=== PATIENT | male | born 1990 | race Caucasian/White ===

== ENCOUNTER 2021-12-01 08:51 | Emergency (ER) | payer BC, SELFPAY ==
[2021-12-01 09:03] VITALS: BP 138/84; PULSE 96; RESP 16; TEMP 36.4; O2SAT 99
--- NOTE | 2021-12-01 09:09 | ED.URI ---
HPI - URI/Sore Throat General Chief Complaint: Upper Respiratory Infection Stated Complaint: Sinus Pain/Sore Throat Time Seen by Provider: 12/01/21 09:09 Source: patient and RN notes reviewed Mode of arrival: ambulatory Limitations: no limitations History of Present Illness HPI Narrative: 31-year-old male presented for complaint of cough, nasal congestion and swollen throat for about 3 days. He states cough is productive of white sputum. Endorses hoarse voice. was sick last week. Denies nausea, vomiting, diarrhea, fever or chills. He is not taking anything for symptoms. He is not vaccinated for COVID or flu. MD elicited complaint: cough and sore throat Related Data Allergies Allergy/AdvReac Type Severity Reaction Status Date / Time No Known Allergies Allergy Verified 12/01/21 08:52 Review of Systems Review of Systems: CONSTITUTIONAL:denies malaise, chills, sweats, fever EYES: Denies visual changes, redness, or discharge ENT: Reports rhinorrhea, congestion, sinus pain, otalgia, sore throat CARDIOVASCULAR: Denies chest pain, palpitations, edema RESPIRATORY: Reports cough, post nasal drainage. Denies dyspnea GASTROINTESTINAL: Denies abdominal pain, nausea, vomiting, diarrhea SKIN: Denies rash or itching MUSCULOSKELETAL: denies myalgia NEUROLOGIC: Denies headache Exam Narrative: GENERAL: Ill-appearing, nontoxic HEAD: Normocephalic EYES: conjunctivae clear ENT: Mucous membranes moist. TM pearly liu with dull light reflex bilaterally; no tragal tenderness. Hoarse voice Oropharynx erythematous with tonsils 2+, without lesions or exudate, no drooling, no hoarseness, no trismus, uvula midline. No tripod positioning, muffled voice, soft palate or pharyngeal wall bulging NECK: Supple. No lymphadenopathy CHEST: Clear to auscultation, breath sounds equal. No wheezing, rhonchi, rales, or stridor. . HEART: Regular rate and rhythm. No murmur heard. SKIN: Warm, dry, no rash. NEURO: Alert and oriented x3. PSYCH: Normal mood and affect Course Course Emergency Course: Patient is aware of diagnosis, understands and agrees to treatment plan. Anticipatory guidance given. Patient agrees to follow-up as directed and is aware of reasons to seek care at the emergency department. Portions of this record may have been created with voice recognition software Level of Care: Express Care Visit Vital Signs Vital signs: Vital Signs Temperature 97.6 F 12/01/21 09:03 Pulse Rate 96 12/01/21 09:03 Respiratory Rate 16 12/01/21 09:03 Blood Pressure 138/84 12/01/21 09:03 Pulse Oximetry 99 12/01/21 09:03 Temperature 97.6 F 12/01/21 09:03 Pulse Rate 96 12/01/21 09:03 Respiratory Rate 16 12/01/21 09:03 Blood Pressure 138/84 12/01/21 09:03 Pulse Oximetry 99 12/01/21 09:03 reviewed MDM - URI/Sore Throat MDM Narrative Medical decision making narrative: strep neg Differential Diagnosis Differential diagnosis: Likely upper respiratory infection, sinusitis, viral infection and pharyngitis Discharge Plan Discharge Clinical Impression: Upper respiratory infection Qualifiers: URI type: unspecified URI Qualified Code(s): J06.9 - Acute upper respiratory infection, unspecified Acute tonsillitis Qualifiers: Pharyngitis/tonsillitis etiology: unspecified etiology Qualified Code(s): J03.90 - Acute tonsillitis, unspecified Patient Disposition: Home, Self-Care Condition: Stable Instructions: Antibiotic Form, Upper Respiratory Infection (ED), Tonsillitis (ED) Additional Instructions: Rapid strep swab was negative today You will be notified in a few days if the culture comes back positive for strep, and appropriate antibiotics will be called in at that time. if symptoms are due to a viral illness, it is not treated with antibiotics. Viral symptoms can be present for up to 10-14 days. Recommend Flonase spray and Zyrtec Cough syrup may cause drowsiness; avoid driving or take it at night time. Robin
== END 2021-12-01 09:46 | disposition home or self-care (01) ==
PROVIDERS: Emergency Provider Nurse Practitioner Family
DX: J06.9 Acute upper respiratory infection, unspecified (principal); J03.90 Acute tonsillitis, unspecified; Z28.310 Unvaccinated for COVID-19
CPT/HCPCS: 87081; 87880; 99213; G0463

== ENCOUNTER 2022-07-05 15:49 | Emergency (ER) | payer BC, SELFPAY ==
--- NOTE | 2022-07-05 15:56 | ED.URI ---
HPI - URI/Sore Throat General Chief Complaint: Unspecified Stated Complaint: COVID + Time Seen by Provider: 07/05/22 16:15 Source: patient Mode of arrival: ambulatory Limitations: no limitations History of Present Illness HPI Narrative: Mr. Samuel is a 31-year-old male patient presenting to the clinic today with complaints of being COVID positive. He reports He is symptoms began 2 days ago with chills, body aches, slight sore throat, headache, nasal congestion some loss of smell. He reports he tested positive for COVID this morning. He is supposed to be going to work this evening and is needing documentation if he can go back to work or not. He denies any chest pain or shortness of breath MD elicited complaint: fever, cough, sore throat, rhinorrhea, nasal congestion, sinus pain and other ( headache, loss of smell) Related Data Home Medications Medication Instructions Recorded Confirmed No Home Medications 07/05/22 07/05/22 Allergies Allergy/AdvReac Type Severity Reaction Status Date / Time No Known Allergies Allergy Verified 07/05/22 16:10 Review of Systems Review of Systems: Pertinent positives per HPI. Patient denies any rash, visual changes, dizziness, shortness of breath, chest pain, palpitations, nausea, vomiting, diarrhea, constipation, abdominal pain, or any urinary issues. PMFSH Comments At the time of my signature, I reviewed and agree with the nursing past medical, surgical, social, and family history. There is no relevant family history pertinent to the patient complaint. Exam Narrative: General: Well-developed, well nourished, in no apparent distress Head: Normocephalic, atraumatic Eyes: Pupils equally round and reactive to light bilaterally, EOM intact, sclera and conjunctive clear, no discharge, lids normal Ears: TMs intact and clear, ear canals clear, no drainage, grossly hearing normal. Nose: Nares patent, clear nasal discharge, no inflammation, no sinus tenderness. Mouth: Oral pharynx without lesions or masses, good dentition, MMM. oropharynx red Neck: Supple, trachea midline, no enlargement of anterior or posterior cervical nodes, no thyroid masses or goiter palpable. Cardio: Regular rate and rhythm, s1 and s2 normal, no murmur appreciated. Resp: Clear to auscultation bilaterally, no rhonchi, rales, wheezing or rubs Course Course Emergency Course: Portions of this record may have been created with voice recognition software. Level of Care: Express Care Visit Vital Signs Vital signs: Vital Signs Temperature 36.2 C L 07/05/22 16:02 Pulse Rate 79 07/05/22 16:02 Respiratory Rate 18 07/05/22 16:02 Blood Pressure 120/78 07/05/22 16:02 Pulse Oximetry 99 07/05/22 16:02 Oxygen Delivery Room Air 07/05/22 16:02 Temperature 36.2 C L 07/05/22 16:02 Pulse Rate 79 07/05/22 16:02 Respiratory Rate 18 07/05/22 16:02 Blood Pressure 120/78 07/05/22 16:02 Pulse Oximetry 99 07/05/22 16:02 Oxygen Delivery Room Air 07/05/22 16:02 Vital signs reviewed MDM - URI/Sore Throat MDM Narrative Medical decision making narrative: at the time of visit patient is resting comfortably on the exam table. COVID testing was positive in the clinic today. Strep test was negative. Supportive measures were discussed with the patient he voiced understanding of discharge instructions and agrees to treatment plan. Differential Diagnosis Differential diagnosis: Likely sinusitis, viral infection, influenza and pharyngitis Discharge Plan Discharge Clinical Impression: COVID-19 Patient Disposition: Home, Self-Care Condition: Stable Instructions: Antibiotic Form, COVID-19 (Coronavirus Disease 2019) (ED), How to Recover from COVID-19 at Home (ED) Additional Instructions: Strep test was negative in the clinic today. COVID testing was positive in the clinic today. May take DayQuil / NyQuil as needed for symptoms will need to isolate for 5 days fr
[2022-07-05 16:02] VITALS: BP 120/78; PULSE 79; RESP 18; TEMP 36.2; O2SAT 99
== END 2022-07-05 17:03 | disposition home or self-care (01) ==
PROVIDERS: Emergency Provider Nurse Practitioner Family
DX: U07.1 COVID-19 (principal)
CPT/HCPCS: 87081; 87426; 87880; 99213; C9803; G0463

== ENCOUNTER 2022-11-06 13:38 | Emergency (ER) | payer BC, SELFPAY ==
[2022-11-06 13:45] VITALS: BP 131/84; PULSE 84; RESP 16; TEMP 36.6; O2SAT 99
--- NOTE | 2022-11-06 13:45 | ED.ABDPAIN ---
HPI - Abdominal Pain General Stated Complaint: sever abd pain/omiting Source: patient and RN notes reviewed Mode of arrival: ambulatory Limitations: no limitations Related Data Home Medications Medication Instructions Recorded Confirmed No Home Medications 07/05/22 07/05/22 Allergies Allergy/AdvReac Type Severity Reaction Status Date / Time No Known Allergies Allergy Verified 07/05/22 16:10 Review of Systems Review of Systems: CONSTITUTIONAL: Denies malaise, chills, sweats, or fever. ENT: Denies rhinorrhea, congestion, sinus pain, otalgia or sore throat. CARDIOVASCULAR: Denies chest pain, palpitations, or edema. RESPIRATORY: Denies cough or dyspnea. GASTROINTESTINAL: Denies abdominal pain, nausea, vomiting, diarrhea, bloody, or mucous stools. GENITOURINARY: Denies dysuria or hematuria. MUSCULOSKELETAL: Denies myalgia. NEUROLOGIC: Denies headache. All systems reviewed & are unremarkable except as noted in HPI and below PMFSH Comments At time of signature, agree with nursing past medical, surgical, social and family history. There is no relevant family history pertinent to the presenting complaint Exam Narrative: GENERAL: Well-appearing, well-nourished, and in no acute distress. HEAD: Normocephalic, atraumatic. EYES: PERRLA, conjunctivae clear, and EOMI. ENT: Nares clear, turbinates pink, no rhinorrhea or epistaxis. Mucous membranes moist. Oropharynx without edema, erythema, or lesions. Tonsils not enlarged and without exudate. NECK: Supple. No lymphadenopathy CHEST: Speaks in full sentences. No respiratory distress. HEART: Regular rate and rhythm. ABDOMEN: Soft, flat, nondistended, nontender. No guarding, rebound tenderness, or rigidity. No pulsatile masses. Bowel sounds present in all four quadrants. No organomegaly. Negative Sandoval?s sign. No periumbilical tenderness. No Supra public tenderness or distension. Good femoral pulses bilaterally. No hernia noted. No scars or surface trauma. SKIN: Warm, dry, no rash. NEURO: Alert and oriented x3. PSYCH: Normal mood and affect Course Course Emergency Course: Patient is aware of diagnosis, understands and agrees to treatment plan. Anticipatory guidance given. Patient agrees to follow-up as directed and is aware of reasons to seek care at the emergency department. Portions of this record may have been created with voice recognition software Level of Care: [facility] Visit Vital Signs Vital signs: Reviewed. Critical Care Time Critical Care Time Critical Care Time: No Discharge Plan Discharge Prescriptions: No Action No Home Medications Follow-up/Referrals: UNKNOWN,DOCTOR [Primary Care Provider] -
== END 2022-11-06 14:09 | disposition left against medical advice (07) ==
PROVIDERS: Emergency Provider Internal Medicine Hematology & Oncology
DX: Z53.21 Procedure and treatment not carried out due to patient leaving prior to being seen by health care provider (principal)
CPT/HCPCS: 99199

== ENCOUNTER 2022-11-06 14:17 | Observation (INO) | payer BC, SELFPAY ==
[2022-11-06] VITALS (8 sets, daily range): BP systolic 121–132; BP diastolic 78–94; PULSE 69–90; RESP 14–18; TEMP 36.8; O2SAT 96–100; BMI 81.2
--- NOTE | ~2022-11-06 | CT_ITS ---
EXAMINATION: CT abdomen pelvis w con DATE: 11/06/2022 18:16 INDICATION: Generalized abdominal pain TECHNIQUE: Computed tomography (CT) of the abdomen and pelvis was performed with 100 CC Omnipaque 350 intravenous contrast. Automated exposure control and iterative reconstruction technique were employe d. Exam dose: 1549.99 mGy-cm total exam DLP. COMPARISON: None. FINDINGS: The lung bases are clear. Normal heart size without pericardial or pleural effusion. The liver, gallbladder, bile ducts, spleen, pancreas, pancreatic duct, and adrenal glands and kidneys are unremarkable. Normal caliber of the abdominal aorta. No intraperitoneal or retroperitoneal or pelvic mass lesion or adenopathy. There is mild ascites. There is prominent thickening of the wall of the ileum which may be infectious or inflammatory. No madeline wel obstruction or intraperitoneal free air. The appendix appears unremarkable. No bowel obstruction or intraperitoneal free air. IMPRESSION: Prominent thickening of the wall of the ileum which may be infectious or inflammatory Reviewed, dictated and finalized at [facility] Reviewed, dictated and finalized at [facility]. IMPRESSION: Prominent thickening of the wall of the ileum which may be infecti ous or inflammatory
[2022-11-06 15:07] LABS: Basophils Percent Auto 0.4 % (0.2-1.2); Eosinophils Absolute Auto 0.4 K/mm3 (0-0.3); Eosinophils Percent Auto 4.9 % (0-4.4); Hematocrit 47.3 % (42.0-52.0); Hemoglobin 16.6 g/dL (14.0-18.0); Immature Granulocyte Absolute 0.03 K/mm3 (0.00-0.031); Immature Granulocyte Percent A 0.3 % (0-0.5); Lymphocytes Absolute Auto 1.21 K/mm3 (0.9-3.2); Lymphocytes Percent Auto 13.5 % (18.3-44.2); Mean Corpuscular HGB Conc 35.1 g/dl (32-36); Mean Corpuscular Hemoglobin 31.9 pg (26-34); Mean Corpuscular Volume 90.8 fl (80-100); Mean Platelet Volume 10.3 fl (7.4-10.4); Monocytes Absolute Auto 0.6 K/mm3 (0.1-0.6); Monocytes Percent Auto 6.1 % (2.6-8.5); Neutrophils Absolute Auto 6.7 K/mm3 (1.3-6.7); Neutrophils Percent Auto 74.8 % (45.5-73.1); Platelet Count Result 269 k/mm3 (150-375); Red Blood Count 5.21 M/mm3 (4.6-6.20); Red Cell Distribution Width 12.2 % (11.5-14.5)
[2022-11-06 15:24] LABS: Appearance Urine Clear (Clear); Bacteria Urine None Seen /hpf; Bilirubin Urine 1+ (Negative); Blood Urine Negative (Negative); Color Urine Dark Yellow (Yellow); Glucose Urine UA Negative (Negative); Ketones Urine Trace mg/dL (Negative); Leukocyte Esterase Ur Negative LEU/UL (Negative); Nitrate Urine Negative (Negative); Non Pathogenic Casts 0-2; Protein Urine Trace mg/dL (Negative); RBC Urine 0-2 /hpf (0-2); Specific Grav Ur 1.028 (1.001-1.035); Squamous Epithelial Cell Urine None seen /hpf (Few); WBC Urine 0-5 /hpf; pH Urine 5.5 (5.0-9.0)
[2022-11-06 15:27] LABS: Add Urine Microscopic? YES
[2022-11-06 15:28] LABS: Alanine Aminotransferase 37 U/L (6-50); Albumin Level 4.7 g/dL (3.5-5.1); Alkaline Phosphatase 69 U/L (38-126); Anion Gap 6 mmol/L (8-16); Aspartate Amino Transferase 29 U/L (17-59); Bilirubin,Total 1.5 mg/dL (0.2-1.3); Blood Urea Nitrogen 10 mg/dL (9-20); Calcium 9.4 mg/dL (8.4-10.2); Carbon Dioxide 29 mmol/L (22-30); Chloride 104 mmol/L (98-107); Estimated CRCL calculation 124 ml/min; Estimated Glomerular Filt Rate > 60; Glucose 106 mg/dL (65-110); Lipase 76 U/L (23-300); Potassium 3.9 mmol/L (3.4-5.0); Sodium 139 mmol/L (137-145)
--- NOTE | 2022-11-06 17:46 | ED.GENADULT ---
HPI - General Adult General Chief complaint: Nausea/Vomiting/Diarrhea Stated complaint: bloated, N/V Time Seen by Provider: 11/06/22 16:50 History of Present Illness HPI narrative: Rodriguez Samuel is a 32 y/o male who presents with reports of generalized abdominal pain. He reports his abdomen has been bloated for 48 hours, he has had 2 episodes of vomiting over the past two days, last BM was 2 days ago and normal. Denies fever/chills. Denies past abdomen surgeries. Related Data Home Medications Medication Instructions Recorded Confirmed No Home Medications 07/05/22 11/06/22 Allergies Allergy/AdvReac Type Severity Reaction Status Date / Time No Known Allergies Allergy Verified 11/06/22 14:22 Review of Systems Review of Systems: CONSTITUTIONAL: Denies fever, chills, or sweats. EYES: Denies visual changes, redness, or discharge. ENT: Denies rhinorrhea, congestion, sore throat, or otalgia. CARDIOVASCULAR: Denies chest pain, palpitations, or edema. RESPIRATORY: Denies cough or dyspnea. GASTROINTESTINAL: Mid generalized abdominal pain for 2 days, nausea with 2 episodes of vomiting of bile SKIN: Denies rash or itching. MUSCULOSKELETAL: Denies back pain, joint pain, or myalgia. NEUROLOGIC: Denies headache, numbness, dizziness, or weakness. PSYCHIATRIC: Denies anxiety or depression. Exam Narrative: GENERAL: Well-appearing, well-nourished, and in no acute distress. HEAD: Normocephalic, atraumatic. EYES: PERRLA and EOMI. ENT: Nares clear, no rhinorrhea or epistaxis. Mucous membranes moist. Oropharynx without tonsillar hypertrophy exudate or other lesions. g NECK: Supple. No adenopathy or masses. No carotid bruits or JVD CHEST: Clear to auscultation. No respiratory distress. No wheezes rales or rhonchi HEART: Regular rate and rhythm. No murmur heard. Normal peripheral pulses. ABDOMEN: Bowel sounds present, abdomen soft, pain middle area, no specific area slightly more on the right side of abdomen then the left EXTREMITIES: Normal range of motion. No edema. SKIN: Warm, dry, no rash. NEURO: No focal deficits. Alert and oriented x3. PSYCH: Normal mood and affect. Course Vital Signs Vital signs: Vital Signs Temperature 36.8 C 11/06/22 14:18 Pulse Rate 86 11/06/22 14:18 Respiratory Rate 16 11/06/22 14:18 Blood Pressure 131/80 11/06/22 14:18 Pulse Oximetry 96 11/06/22 14:18 Oxygen Delivery Room Air 11/06/22 14:18 Temperature 36.8 C 11/06/22 14:18 Pulse Rate 72 11/06/22 19:39 Respiratory Rate 14 11/06/22 19:39 Blood Pressure 132/84 11/06/22 19:39 Pulse Oximetry 97 11/06/22 19:39 Oxygen Delivery Room Air 11/06/22 14:18 Medical Decision Making MDM Narrative Medical decision making narrative: On exam pt is standing in the room, states this improves his abdominal pain. Bowel sounds present, abdomen soft, tender throughout with palpation Plan to check blood work/ CT of abdomen pelvis Concern for : Cholecystitis/ SBO / Constipation/ Gastritis/ appendicitis/ Labs are stable, CT is showing prominent thickening of the wall of the ileum which may be infectious or inflammatory Collaborated with Dr. Rubio and consulted General surgery Dr. Andrews who recommends pt to be consulted with GI - called Dr. Goldsmith and he agrees to consult pt, have pt be admited and may start IV antibiotics Flagyl Patient updated on plan of admission, GI consult, treat symptoms and monitor. Patient agreeable to this plan Called Dr. Katz for admission and pt is accepted for admission. Differential Diagnosis Differential Diagnosis: Cholecystitis/ SBO / Constipation/ Gastritis/ appendicitis/ Vital Signs Vital Signs: Vital Signs Temperature 36.8 C 11/06/22 14:18 Pulse Rate 86 11/06/22 14:18 Respiratory Rate 16 11/06/22 14:18 Blood Pressure 131/80 11/06/22 14:18 Pulse Oximetry 96 11/06/22 14:18 Oxygen Delivery Room Air 11/06/22 14:18 Temperature 36.
[2022-11-06] MEDS: SODIUM CHLORIDE 0.9% IV 1,000 ML 999 ML IV CONT (17:49)
[2022-11-06] MEDS: ONDANSETRON INJ 4 MG/2 ML VIAL IV PUSH (17:50)
[2022-11-06] MEDS: KETOROLAC 30 MG/ML VIAL (*BKC) IV PUSH (17:50)
[2022-11-06] MEDS: FAMOTIDINE 20 MG/2 ML VIAL IV PUSH (17:51)
[2022-11-06 19:53] LABS: Lactic Acid Reflex 0.9 mmol/L (0.7-2.0)
[2022-11-06] MEDS: metroNIDAZOLE 500 MG/ISO 100ML 500 MG/100 ML BAG 100 MG IVPB (19:58)
--- NOTE | 2022-11-06 20:32 | PM.IMHP ---
H&P: HPI History of Present Illness Date/Time: 11/06/22 20:32 Chief Complaint: Abdominal pain Narrative: This is a 32-year-old male with no significant past medical history, tobacco dependence, patient smokes 1 pack of cigarettes daily, presents to the emergency room due to abdominal pain since the day before, patient attributes this to a sandwich that he ate at his job, pain is localized to the periumbilical area, nonradiating colic in nature, no relieving or worsening factors, progressively worse in the course of the last day or so, no nausea, no vomiting although had 1 episode of vomiting, has not been able to eat, pain was relieved by pain medication, no hematemesis no coffee-ground emesis no melena no bright red blood per rectum, no fevers, no rigors, no chills, no diarrhea, no cough, no sputum production. Patient has been his usual state of health up until this moment, no weight loss, no generalized malaise. Preliminary workup was significant for CT of abdomen and pelvis was reported as: CT abdomen and pelvis FINDINGS: The lung bases are clear. Normal heart size without pericardial or pleural effusion. The liver, gallbladder, bile ducts, spleen, pancreas, pancreatic duct, and adrenal glands and kidneys are unremarkable. Normal caliber of the abdominal aorta. No intraperitoneal or retroperitoneal or pelvic mass lesion or adenopathy. There is mild ascites. There is prominent thickening of the wall of the ileum which may be infectious or inflammatory. No bowel obstruction or intraperitoneal free air. The appendix appears unremarkable. No bowel obstruction or intraperitoneal free air. IMPRESSION:? Prominent thickening of the wall of the ileum which may be infectious or inflammatory Review of Systems Review of Systems: Abdominal pain Constitutional: Constitutional: Denies chills, Denies fatigue, Denies fever(s), Denies lethargy, Denies malaise, Denies night sweats, Denies poor appetite and Denies weakness Eyes: Eyes: Denies change in vision ENT: Denies dysphagia and Denies odynophagia Cardiovascular: Cardiovascular: Denies chest pain, Denies leg edema, Denies lightheadedness and Denies palpitations Respiratory: Respiratory: Denies chest congestion, Denies cough, Denies excessive phlegm production, Denies pain on inspiration, Denies dyspnea, Denies dyspnea on exertion and Denies wheezing Gastrointestinal: Gastrointestinal: Reports abdominal pain, Denies melena, Denies hematochezia, Denies coffee ground emesis, Reports constipation, Reports GI cramping, Denies dyspepsia, Denies heartburn, Denies diarrhea, Denies loose stools, Denies nausea, Denies vomiting and Denies hematemesis Genitourinary: Genitourinary: Denies dysuria Musculoskeletal: Musculoskeletal: Denies back pain, Denies joint swelling, Denies muscle weakness and Denies tingling Integumentary/Breasts: Skin/Breast: Denies rash Neurologic: Denies focal weakness and Denies Sensory deficit (Neuro) Psychiatric: Psychiatric: Reports no additional psychiatric complaints and Reports as per HPI Endocrine: Endocrine: Denies cold intolerance, Denies fatigue, Denies flushing, Denies heat intolerance, Denies polyphagia, Denies polydipsia and Denies palpitations Hematologic/Lymphatic: Hematologic/Lymphatic: Reports no additional hematologic/lymphatic complaints and Reports as per HPI Allergic/Immunologic: Allergic/Immunologic: Reports no additional allergic/immunologic complaints and Reports as per HPI PMFSH Social History Social History Smoking packs per day: 1.5 Smoking cigarettes per day: 30.0 Years smoked: 10 Smoking pack-years: 15.00 Smoking status: Current every day smoker Tobacco type: cigarettes Alcohol intake: never Substance use: never Lack of Transportation: No Lack of Food: Never True Current Housing: I Have Housing Concerned About Future Housing: Decline to Answer Difficulty Paying Gas/El
[2022-11-06] MEDS: LACTATED RINGERS 1,000 ML 125 ML IV CONT (20:36)
--- NOTE | 2022-11-06 22:03 | PC.NURSE ---
This patient, Rodriguez Samuel, was admitted to Medical Room 345-01. Patient/family oriented to hospital policies and general routines including ID bracelet, bed and alarms, visiting hours, pain management, procedures, bathroom and other care routines, personal items, smoking policy, room service/diet, and visiting hours. Information on how to activate the Rapid Response Team has been discussed. Patient/Family are encouraged to report perceived risks to care and to ask questions if they do not understand what they are told or what they should do.
[2022-11-07] MEDS: metroNIDAZOLE 500 MG/ISO 100ML 500 MG/100 ML BAG 100 MG IVPB ×3 (01:48→16:23)
[2022-11-07 04:00] VITALS: BP 108/60; PULSE 65; RESP 16; TEMP 36.6; O2SAT 98
[2022-11-07] MEDS: PANTOPRAZOLE SODIUM IV 40 MG VIAL IV PUSH (08:33)
[2022-11-07] MEDS: ENOXAPARIN 40 MG/0.4 ML SYRINGE SUB-Q (08:33)
--- NOTE | 2022-11-07 11:52 | PM.IMPN ---
Progress Note: A&P Assessment and Plan (1) Segmental ileitis of small intestine: Code(s): K50.00 - Crohn's disease of small intestine without complications Status: Acute Assessment and Plan: Patient presented to the ED for evaluation of N/V, abdominal pain and bloating. Last BM [address] abdomen and pelvis suggests ileum thickening WBC 9 with mildly elevated neutrophil count. No fevers. Started on Flagyl and levofloxacin, first dose given 11/07/22 GI and General Surgery consulted and appreciate recommendations. Continue clear liquid diet and IV fluids. (2) Abdominal pain: Code(s): R10.9 - Unspecified abdominal pain Status: Acute Assessment and Plan: Secondary to above. continue current management. PRN antiemetics. (3) Tobacco dependence: Code(s): F17.200 - Nicotine dependence, unspecified, uncomplicated Status: Chronic Assessment and Plan: Nicotine patch as needed Encouraged cessation (4) Obesity (BMI 30-39.9): Code(s): E66.9 - Obesity, unspecified Status: Chronic Assessment and Plan: Lifestyle and diet modifications Plan CODE STATUS: FULL CODE Disposition: form home. Time Spent With Patient Time with patient: 15 - 25 minutes Subjective Date/time seen: 11/07/22 11:52 He reports his abdominal pain is improved, but bloating is unchanged. He is passing gas. No belching or BM. He has been able to take in clear liquids and denies nausea or vomiting. He denies dizziness or feeling lightheaded. Review of Systems Review of Systems: All systems reviewed & are unremarkable except as noted in HPI and below Exam Narrative: General: No acute distress.?Well-developed adult male sitting up in the bed. Neuro/Psych: Awake, alert and oriented x4. Clear speech. Pleasant and cooperative. No focal sensory or motor deficits. No facial droop. Skin: fair, warm, dry and intact without rashes. Fair turgor. HEENT: Normocephalic. Sclera is non-icteric. Pupils equal and round. Oral mucosa pink and dry. Neck: No JVD. Heart: S1 and S2 regular rate and rhythm. No murmurs, gallops, or rubs auscultated. Chest: Respirations even and unlabored. Lung sounds are clear to auscultation and diminished bibasilar lobes without wheezes, rhonchi, or rales. Abdomen: Soft, obese, non-tender to palpation all four quadrants.? Bowel sounds present in all 4 quadrants. No guarding or suprapubic tenderness. Extremities:? No edema, erythema or calf tenderness. Grossly normal ROM. Radial and dorsalis pulses +2 bilaterally. ? Objective Data Vital Signs Vital Signs: Vital Signs - 24 hr 11/06/22 14:18 11/06/22 16:50 11/06/22 16:50 Temperature 98.3 F Pulse Rate 86 76 79 Respiratory Rate 16 Blood Pressure 131/80 125/81 125/86 Pulse Oximetry 96 Oxygen Delivery Room Air 11/06/22 16:57 11/06/22 17:46 11/06/22 18:48 Temperature Pulse Rate 90 82 78 Respiratory Rate 18 18 Blood Pressure 124/89 123/78 131/88 Pulse Oximetry 97 99 Oxygen Delivery 11/06/22 19:39 11/06/22 21:06 11/06/22 22:00 Temperature Pulse Rate 72 80 Respiratory Rate 14 16 Blood Pressure 132/84 122/88 Pulse Oximetry 97 97 Oxygen Delivery Room Air 11/06/22 22:00 11/07/22 04:00 Temperature 98.2 F 97.9 F Pulse Rate 69 65 Respiratory Rate 16 16 Blood Pressure 121/94 H 108/60 Pulse Oximetry 100 98 Oxygen Delivery Intake/Output Intake/Output: Intake & Output 11/04/22 11/05/22 11/06/22 11/07/22 23:59 23:59 23:59 23:59 Intake Total 1100 1070 Balance 1100 1070 Meds/Results Medications: Active Medications Generic Name Dose Route Start Last Admin Trade Name Simone PRN Reason Stop Dose Admin Enoxaparin Sodium 40 mg 11/07/22 09:00 11/07/22 08:33 Enoxaparin 40 Mg/0.4 Ml Syringe SUB-Q 40 mg DAILY FIONA Administration Lactated Ringer's 1,000 mls @ 125 mls/hr 11/06/22 19:50 11/06/22 20:36 Lr - Lactated Ringers Iv IV CONT 125 mls/hr
[2022-11-07 12:00] VITALS: BP 150/88; PULSE 73; RESP 18; TEMP 36.3; O2SAT 100
--- NOTE | 2022-11-07 13:57 | WPDGICN ---
Assessment and Plan Assessment and plan (1) Segmental ileitis of small intestine: Code(s): K50.00 - Crohn's disease of small intestine without complications Status: Acute Assessment and Plan: I think that could be infectious related or gastroenteritis, he denies any previous history of GI discomfort making ibd less likely and he already doing better with abx denies fever or diarrhea, wbc is normal empirically on abx advance diet, if better probably can go home tomorrow and then follow-up as outpatient for consideration of colonoscopy (2) Abdominal pain: Code(s): R10.9 - Unspecified abdominal pain Status: Acute Assessment and Plan: better (3) Nausea & vomiting: Code(s): R11.2 - Nausea with vomiting, unspecified Status: Acute Assessment and Plan: resolved (4) Tobacco dependence: Code(s): F17.200 - Nicotine dependence, unspecified, uncomplicated Status: Chronic GI Consult Note Consult date/time: 11/07/22 13:57 Reason for consult: n/v, abdominal pain, ileum thickening HPI: Rodriguez Samuel is a 32 year old male with no major chronic condition, he is smoker and denies any surgery. He came here with new onset of severe periumbilical area after eating a sandwich, nonradiating colic in nature then have one episode of vomiting. He denies any previous GI issue. Normally he has unremarkable bowel movements, no recent fever, never had scopes. He has not had BM since getting sick. CT abdomen and pelvis reviewed and showed prominent thickening of the wall of the ileum which may be infectious or inflammatory. WBC was normal. He is already feeling better and denies previous episodes, no more pain. Review of Systems Constitutional: Constitutional: Denies chills Eyes: Eyes: Denies blurry vision ENT: Reports Normal hearing present Cardiovascular: Cardiovascular: Denies chest pain Respiratory: Respiratory: Denies cough Gastrointestinal: Gastrointestinal: Reports abdominal pain and Reports vomiting Genitourinary: Genitourinary: Denies hematuria Musculoskeletal: Musculoskeletal: Denies neck pain Integumentary/Breasts: Skin/Breast: Denies rash Neurologic: Denies Abnormal speech present Psychiatric: Psychiatric: Denies behavioral changes [facility] Social History Social History Smoking packs per day: 1.5 Smoking cigarettes per day: 30.0 Years smoked: 10 Smoking pack-years: 15.00 Smoking status: Current every day smoker Tobacco type: cigarettes Alcohol intake: never Substance use: never Lack of Transportation: No Lack of Food: Never True Current Housing: I Have Housing Concerned About Future Housing: Decline to Answer Difficulty Paying Gas/Electric Bills: Decline to Answer Difficulty Paying for Meds: Decline to Answer Currently Unemployed: Decline to Answer Education: Decline to Answer Difficulty w/ Childcare or Family Care: Decline to Answer Spiritual care concerns: No Meds Home Medications and Allergies Home Medications Medication Instructions Recorded Confirmed Type No Home Medications 07/05/22 11/06/22 History Allergies Allergy/AdvReac Type Severity Reaction Status Date / Time No Known Allergies Allergy Verified 11/06/22 14:22 Vital Signs Vital Signs - 24 hr 11/06/22 14:18 11/06/22 16:50 11/06/22 16:50 Temperature 98.3 F Pulse Rate 86 76 79 Respiratory Rate 16 Blood Pressure 131/80 125/81 125/86 Pulse Oximetry 96 Oxygen Delivery Room Air 11/06/22 16:57 11/06/22 17:46 11/06/22 18:48 Temperature Pulse Rate 90 82 78 Respiratory Rate 18 18 Blood Pressure 124/89 123/78 131/88 Pulse Oximetry 97 99 Oxygen Delivery 11/06/22 19:39 11/06/22 21:06 11/06/22 22:00 Temperature Pulse Rate 72 80 Respiratory Rate 14 16 Blood Pressure 132/84 122/88 Pulse Oximetry 97 97 Oxygen Delivery Room Air 11/06/22 22:
--- NOTE | 2022-11-07 14:51 | PM.CNGS ---
Assessment and Plan Assessment and plan (1) Segmental ileitis of small intestine: Code(s): K50.00 - Crohn's disease of small intestine without complications Status: Acute Assessment and Plan: CT suggesting ileitis. No evidence of a small bowel obstruction. He did present with nausea and vomiting, but this has resolved. His abdominal pain has nearly resolved and his abdominal exam is benign. Continue medical management per GI and primary service. No indication for surgical intervention at this time. Okay to advance diet as tolerated. Will sign off. Please call with any surgical concerns. (2) Nausea & vomiting: Code(s): R11.2 - Nausea with vomiting, unspecified Status: Acute Assessment and Plan: Resolved. No vomiting since admission. Clinically improving. See plan above, advance diet as tolerated. (3) Tobacco dependence: Code(s): F17.200 - Nicotine dependence, unspecified, uncomplicated Status: Chronic (4) Obesity (BMI 30-39.9): Code(s): E66.9 - Obesity, unspecified Status: Chronic Plan I have discussed the patient's case and plan of care with Dr. Andrews. History of Present Illness Consult details Consult date: 11/07/22 Reason for consult: other (Ileitis) Requesting physician: Eunice Lao APRN Narrative: This is a 32-year-old man who presented to the ER for evaluation of abdominal pain x1 day. He reports a sudden onset of periumbilical abdominal pain that radiates across his entire abdomen. No alleviating or worsening factors. He does endorse nausea and vomiting. He felt the vomiting was related to the severity of his pain. This pain continued to become more severe and ultimately brought him into the ER for evaluation. Workup in the ED showed CT evidence of ileitis, which could be infectious or inflammatory. Labs were unremarkable. He was admitted to the hospitalist service. GI was consulted. He was started on IV Levaquin and Flagyl. Our service was consulted for the ileitis. He is now seen on medical floor. He tried clear liquids for lunch and tolerated this well. He denies any nausea or vomiting since admission. He still feels bloated, but improved. Overall, he is feeling much better and his abdominal pain has significantly improved. He is passing lots of flatus, but no BM since Monday. Denies a history similar episodes or IBD. No family history of IBD. Denies chronic diarrhea, chronic abdominal pain, weight loss, or generalized malaise. No previous abdominal surgeries or previous colonoscopy. Review of Systems Review of Systems: All systems reviewed & are unremarkable except as noted in HPI and below PMFSH Past Medical History Medical History Tobacco dependence Surgical History Surgical History No pertinent past surgical history Social History Social History Smoking packs per day: 1.5 Smoking cigarettes per day: 30.0 Years smoked: 10 Smoking pack-years: 15.00 Smoking status: Current every day smoker Tobacco type: cigarettes Alcohol intake: never Substance use: never Lack of Transportation: No Lack of Food: Never True Current Housing: I Have Housing Concerned About Future Housing: Decline to Answer Difficulty Paying Gas/Electric Bills: Decline to Answer Difficulty Paying for Meds: Decline to Answer Currently Unemployed: Decline to Answer Education: Decline to Answer Difficulty w/ Childcare or Family Care: Decline to Answer Spiritual care concerns: No Meds Home Medications and Allergies Home Medications Medication Instructions Recorded Confirmed Type No Home Medications 07/05/22 11/06/22 History Allergies Allergy/AdvReac Type Severity Reaction Status Date / Time No Known Allergies Allergy Verified 11/06/22 14:22 Vital S
--- NOTE | 2022-11-07 14:55 | PM.CNGS ---
History of Present Illness Consult details Consult date: 11/07/22 Reason for consult: abdominal pain Requesting physician: Niesha Katz MD Narrative: The patient is a 32-year-old male presenting to the emergency department complaining of severe, colicky periumbilical abdominal pain. The patient reports the pain has been constant and progressive over the last few days. The patient reports nausea and emesis x2, poor appetite. The patient reports he has really had no bowel function over the same time span. Patient denies any previous similar episodes. The patient denies any family history of any colorectal cancers, inflammatory bowel disease. Of note, upon seeing the patient today he is already feeling much improved. Review of Systems Constitutional: Constitutional: Reports as per HPI, Reports anorexia, Denies chills, Reports fatigue, Denies fever(s), Reports lethargy, Reports poor appetite, Reports weakness, Denies weight gain and Denies weight loss Eyes: Eyes: Reports no additional eye complaints ENT: Reports system reviewed and no additional complaints, except as documented Cardiovascular: Cardiovascular: Reports no additional cardiovascular complaints Respiratory: Respiratory: Reports no additional respiratory complaints Gastrointestinal: Gastrointestinal: Reports abdominal pain and Reports bloating PMFSH Past Medical History Medical History Tobacco dependence Surgical History Surgical History No pertinent past surgical history Social History Social History Smoking packs per day: 1.5 Smoking cigarettes per day: 30.0 Years smoked: 10 Smoking pack-years: 15.00 Smoking status: Current every day smoker Tobacco type: cigarettes Alcohol intake: never Substance use: never Lack of Transportation: No Lack of Food: Never True Current Housing: I Have Housing Concerned About Future Housing: Decline to Answer Difficulty Paying Gas/Electric Bills: Decline to Answer Difficulty Paying for Meds: Decline to Answer Currently Unemployed: Decline to Answer Education: Decline to Answer Difficulty w/ Childcare or Family Care: Decline to Answer Spiritual care concerns: No Meds Home Medications and Allergies Home Medications Medication Instructions Recorded Confirmed Type No Home Medications 07/05/22 11/06/22 History Allergies Allergy/AdvReac Type Severity Reaction Status Date / Time No Known Allergies Allergy Verified 11/06/22 14:22 Vital Signs Vital Signs - 24 hr 11/06/22 16:50 11/06/22 16:50 11/06/22 16:57 Temperature Pulse Rate 76 79 90 Respiratory Rate Blood Pressure 125/81 125/86 124/89 Pulse Oximetry Oxygen Delivery 11/06/22 17:46 11/06/22 18:48 11/06/22 19:39 Temperature Pulse Rate 82 78 72 Respiratory Rate 18 18 14 Blood Pressure 123/78 131/88 132/84 Pulse Oximetry 97 99 97 Oxygen Delivery 11/06/22 21:06 11/06/22 22:00 11/06/22 22:00 Temperature 36.8 C Pulse Rate 80 69 Respiratory Rate 16 16 Blood Pressure 122/88 121/94 H Pulse Oximetry 97 100 Oxygen Delivery Room Air 11/07/22 04:00 11/07/22 12:00 Temperature 36.6 C 36.3 C L Pulse Rate 65 73 Respiratory Rate 16 18 Blood Pressure 108/60 150/88 H Pulse Oximetry 98 100 Oxygen Delivery Results Labs 11/06/22 14:58 11/06/22 14:58 Labs: Abnormal lab results 11/06/22 11/06/22 11/06/22 Range/Units 14:58 14:58 14:58 Neut % (Auto) 74.8 H (45.5-73.1) % Lymph % (Auto) 13.5 L (18.3-44.2) % Eos % (Auto) 4.9 H (0-4.4) % Eos # (Auto) 0.4 H (0-0.3) K/mm3 Anion Gap 6 L (8-16) mmol/L Total Bilirubin 1.5 H (0.2-1.3) mg/dL Urine Bilirubin 1+ H (Negative) Diabetes panel 11/06/22 Range/Units 14:58 Sodium 139 (137-145) mmo
[2022-11-07] MEDS: LACTATED RINGERS 1,000 ML 125 ML IV CONT (15:08)
[2022-11-07 20:00] VITALS: BP 115/65; PULSE 72; RESP 17; TEMP 36.8; O2SAT 100
[2022-11-07 23:23] VITALS: BP 141/80; PULSE 64; RESP 17; TEMP 36.6; O2SAT 100
[2022-11-08] MEDS: LACTATED RINGERS 1,000 ML 125 ML IV CONT (00:47)
[2022-11-08] MEDS: metroNIDAZOLE 500 MG/ISO 100ML 500 MG/100 ML BAG 100 MG IVPB ×2 (00:48→08:42)
[2022-11-08 03:43] VITALS: BP 117/72; PULSE 61; RESP 17; TEMP 36.5; O2SAT 98
[2022-11-08 06:01] LABS: Basophils Percent Auto 0.8 % (0.2-1.2); Eosinophils Absolute Auto 0.5 K/mm3 (0-0.3); Eosinophils Percent Auto 8.9 % (0-4.4); Hematocrit 34.7 % (42.0-52.0); Hemoglobin 12.3 g/dL (14.0-18.0); Immature Granulocyte Absolute 0.03 K/mm3 (0.00-0.031); Immature Granulocyte Percent A 0.6 % (0-0.5); Lymphocytes Percent Auto 34.1 % (18.3-44.2); Mean Corpuscular HGB Conc 35.4 g/dl (32-36); Mean Corpuscular Hemoglobin 31.7 pg (26-34); Mean Corpuscular Volume 89.4 fl (80-100); Mean Platelet Volume 10.9 fl (7.4-10.4); Monocytes Absolute Auto 0.3 K/mm3 (0.1-0.6); Monocytes Percent Auto 6.3 % (2.6-8.5); Neutrophils Absolute Auto 2.6 K/mm3 (1.3-6.7); Neutrophils Percent Auto 49.3 % (45.5-73.1); Platelet Count Result 175 k/mm3 (150-375); Red Blood Count 3.88 M/mm3 (4.6-6.20); White Blood Count 5.3 K/mm3 (4.5-10.0)
[2022-11-08 06:17] LABS: Alanine Aminotransferase 25 U/L (6-50); Albumin Level 3.5 g/dL (3.5-5.1); Alkaline Phosphatase 49 U/L (38-126); Anion Gap 6 mmol/L (8-16); Aspartate Amino Transferase 24 U/L (17-59); Bilirubin,Total 1.2 mg/dL (0.2-1.3); Blood Urea Nitrogen 9 mg/dL (9-20); CRP 0.7 mg/dL (<1.0); Calcium 8.2 mg/dL (8.4-10.2); Carbon Dioxide 27 mmol/L (22-30); Chloride 105 mmol/L (98-107); Estimated CRCL calculation 242 ml/min; Estimated Glomerular Filt Rate > 60; Glucose 83 mg/dL (65-110); Potassium 3.6 mmol/L (3.4-5.0); Sodium 138 mmol/L (137-145)
[2022-11-08] MEDS: PANTOPRAZOLE SODIUM IV 40 MG VIAL IV PUSH (08:43)
--- NOTE | 2022-11-08 11:30 | WPDGIPROGNO ---
Progress Note: A&P Assessment and Plan (1) Disorder of ileum: Code(s): K63.9 - Disease of intestine, unspecified Status: Acute Assessment and Plan: resolved, probably gastroenteritis he is going home today we can arrange colonoscopy as outpatient in 1-2 months (2) Abdominal pain: Code(s): R10.9 - Unspecified abdominal pain Status: Acute Assessment and Plan: resolved (3) Nausea & vomiting: Code(s): R11.2 - Nausea with vomiting, unspecified Status: Acute Assessment and Plan: resolved Subjective Date/time seen: 11/08/22 11:30 Interval history: no more pain and tolerating diet, he is going home Review of Systems Review of Systems: All systems reviewed & are unremarkable except as noted in HPI and below Exam Const: General: comfortable and no acute distress HENMT: Face/Nose/Sinus: Normal nares present Eyes: General: appearance normal, both eyes and all related structures Neck: Neck: no JVD Resp: Auscultation: clear to auscultation bilaterally Cardio: Rate: regular rate Rhythm: regular rhythm GI: Inspection: non-distended GI Palp: Yes Soft to palpation, No Tenderness to palpation present (GI) and No Guarding due to palpation present (GI) Auscultation: normal bowel sounds Skin: General skin exam: normal color Neuro: General: gait normal Speech: normal speech Extrem: General: normal to inspection Psych: Mental Status: mental status grossly normal Objective Data Vital Signs Vital Signs: Vital Signs - 24 hr 11/07/22 20:00 11/07/22 23:23 11/08/22 03:43 Temperature 98.2 F 97.8 F 97.7 F Pulse Rate 72 64 61 Respiratory Rate 17 17 17 Blood Pressure 115/65 141/80 H 117/72 Pulse Oximetry 100 100 98 Oxygen Delivery 11/08/22 08:51 Temperature Pulse Rate Respiratory Rate Blood Pressure Pulse Oximetry Oxygen Delivery Room Air Intake/Output Intake/Output: Intake & Output 11/05/22 11/06/22 11/07/22 11/08/22 23:59 23:59 23:59 23:59 Intake Total 1100 4180 1490 Balance 1100 4180 1490 Meds/Results Radiology Results: ITS Impressions Abdomen/Pelvis CT 11/06/22 18:46 IMPRESSION: Prominent thickening of the wall of the ileum which may be infectious or inflammatory Labs Labs: Laboratory Results - last 24 hr 11/08/22 11/08/22 05:22 05:22 WBC 5.3 RBC 3.88 L Hgb 12.3 L D Hct 34.7 L MCV 89.4 MCH 31.7 MCHC 35.4 RDW 12.0 Plt Count 175 MPV 10.9 H Immature Gran % (Auto) 0.6 H Neut % (Auto) 49.3 Lymph % (Auto) 34.1 [place] % (Auto) 6.3 Eos % (Auto) 8.9 H Baso % (Auto) 0.8 Lymph # (Auto) 1.80 [place] # (Auto) 0.3 Eos # (Auto) 0.5 H Baso # (Auto) 0.0 Abs Immat Gran (auto) 0.03 Absolute Neuts (auto) 2.6 Absolute Nucleated RBC 0.0 Nucleated RBC % 0.0 Sodium 138 Potassium 3.6 Chloride 105 Carbon Dioxide 27 Anion Gap 6 L BUN 9 Creatinine 0.90 Estim Creat Clear Calc 242 Estimated GFR > 60 Glucose 83 Calcium 8.2 L Total Bilirubin 1.2 AST 24 ALT 25 Alkaline Phosphatase 49 C-Reactive Protein 0.7 Total Protein 6.0 L Albumin 3.5 Amg Follow-up Billing Hospital Follow-up Hospital Follow-up: [id number] [facility]
--- NOTE | 2022-11-08 11:55 | PM.DS ---
DS: Admitting Diagnosis Discharge Date 11/08/2022 Admitting Diagnosis Segmental ileitis of small intestine Unspecified abdominal pain Tobacco dependence? Obesity (BMI 30-39.9) DS: Discharge Diagnosis Discharge Diagnosis (1) Disorder of ileum: Code(s): K63.9 - Disease of intestine, unspecified Status: Acute Assessment and Plan: Patient presented to the ED for evaluation of N/V, abdominal pain and bloating. Last BM 2 prior? CT abdomen and pelvis suggests ileum thickening WBC 9 with mildly elevated neutrophil count. No fevers.? Started on Flagyl and levofloxacin, first dose given 11/07/22 and continued IV until 11/08/22 when transitioned to oral Levaquin and metronidazole. GI and General Surgery consulted and appreciate recommendations.?No surgical needs noted and symptoms thought to be secondary to infectious gastroenteritis Continue clear liquid diet and IV fluids and diet advanced with good tolerance. (2) Abdominal pain: Code(s): R10.9 - Unspecified abdominal pain Status: Acute Assessment and Plan: Secondary to above. continue current management. PRN antiemetics. (3) Tobacco dependence: Code(s): F17.200 - Nicotine dependence, unspecified, uncomplicated Status: Chronic Assessment and Plan: Nicotine patch as needed Encouraged cessation (4) Obesity (BMI 30-39.9): Code(s): E66.9 - Obesity, unspecified Status: Chronic Assessment and Plan: Lifestyle and diet modifications DS: Summary Hospital Course Reason for hospitalization: Abdominal pain Hospital Course: Patient?is a 32-year-old male with tobacco dependence, who presented to the emergency room due to abdominal pain x1 day. Patient attributes symptoms to a sandwich that he ate at his job. Pain was localized to the periumbilical area, nonradiating colic in nature, with no relieving or worsening factors. The pain became progressively worse in the course of the last day or so prompting his visit. He denied nausea, but reported 1 episode of vomiting. He had not been able to eat. Pain was relieved by pain medication in the ED. He denied hematemesis, coffee-ground emesis, melena, bright red blood per rectum, fevers, rigors, chills, diarrhea, cough, or sputum production.? No weight loss or generalized malaise. Preliminary workup was significant for CT of abdomen and pelvis showing prominent thickening of the wall of the ileum which may be infectious or inflammatory. He was treated with IV metronidazole and referred for observation. The patient was on the medical floor and treated with IV fluids, IV levaquin 750 mg Q24 and IV metronidazole 500 mg Q8 hours. GI and General Surgery were consulted. He was NPO pending evaluation. No intervention was recommended and symptoms were thought to be secondary to infectious disease as he improved quickly on antibiotics. His diet was advanced and he was transitioned to oral Levaquin 750 mg PO Q24 hours and metronidazole 500 mg PO Q8 hours x 5 more days (total 7-days total). He will follow up with GI outpatient. He was discharged home in stable condition. Status at Discharge Cognitive/behavioral status at discharge: AOx4, baseline Functional status at discharge: independent ambulation Overall status at discharge: patient is progressing back to baseline Time Spent with Patient Time attestation: Total time spent providing and/or coordinating discharge services: Time spent: Greater than 30 minutes Exam Narrative: General: No acute distress.?Well-developed adult male sitting up in the bed. Temp 97.7F, HR 61, RR 17, BP 117/72, spO2 98% room air, Neuro/Psych: Awake, alert and oriented x4. Clear speech. Pleasant and cooperative. No focal sensory or motor deficits. No facial droop. Skin: fair, warm, dry and intact without rashes. Fair turgor. HEENT: Normocephalic. Sclera is non-icteric. Pupils equal and round. Oral mucosa pink and dry. Neck: No JVD. Heart: S1 and S2 regula
== END 2022-11-08 12:40 | disposition home or self-care (01) ==
LOC: ANHED 19:45 → ANH3MED 21:28
PROVIDERS: Nurse Practitioner Family; Preventive Medicine Aerospace Medicine; Admitting Provider Internal Medicine; Emergency Provider Nurse Practitioner Family; Visit Provider Student in an Organized Health Care Education/Training Program
DX: K63.9 Disease of intestine, unspecified (principal); R10.9 Unspecified abdominal pain; R14.0 Abdominal distension (gaseous); R11.2 Nausea with vomiting, unspecified; R63.0 Anorexia; R53.1 Weakness; F17.210 Nicotine dependence, cigarettes, uncomplicated; R18.8 Other ascites; E66.9 Obesity, unspecified; Z68.45 Body mass index [BMI] 70 or greater, adult
CPT/HCPCS: 36415; 74177; 80053; 81001; 83605; 83690; 85025; 86140; 96361; 96365; 96366; 96372; 96375; 96376; 99285; C9113; G0378; J1650; J1885; J1956; J2405; J7030; J7120; Q9967

== ENCOUNTER 2023-10-16 10:05 | Emergency (ER) | payer BC, SELFPAY ==
--- NOTE | 2023-10-16 10:06 | ED.URI ---
HPI - URI/Sore Throat General Chief Complaint: Upper Respiratory Infection Stated Complaint: fever,sore throat Time Seen by Provider: 10/16/23 10:06 Source: patient Mode of arrival: ambulatory Limitations: no limitations History of Present Illness HPI Narrative: Rodriguez is a 33-year-old male patient presenting to the clinic today with complaints of fever and sore throat 2 days. He reports he has had fever, cough, sore throat, nasal congestion, headache, and ear pain. MD elicited complaint: sore throat and nasal congestion Related Data Allergies Allergy/AdvReac Type Severity Reaction Status Date / Time No Known Allergies Allergy Verified 11/06/22 14:22 Review of Systems Review of Systems: Pertinent positives per HPI. Patient denies any rash, headache, visual changes, dizziness, shortness of breath, chest pain, palpitations, nausea, vomiting, diarrhea, constipation, abdominal pain, or any urinary issues. PMFSH Past Medical History Medical History Obesity (BMI 30-39.9) Tobacco dependence Surgical History Surgical History No pertinent past surgical history Social History Social History Smoking packs per day: 1.5 Smoking cigarettes per day: 30.0 Years smoked: 10 Smoking pack-years: 15.00 Smoking status: Current every day smoker Tobacco type: cigarettes Alcohol intake: never Substance use: never Lack of Transportation: No Lack of Food: Never True Current Housing: I Have Housing Concerned About Future Housing: Decline to Answer Difficulty Paying Gas/Electric Bills: Decline to Answer Difficulty Paying for Meds: Decline to Answer Currently Unemployed: Decline to Answer Education: Decline to Answer Difficulty w/ Childcare or Family Care: Decline to Answer Spiritual care concerns: No Comments At the time of my signature, I reviewed and agree with the nursing past medical, surgical, social, and family history. There is no relevant family history pertinent to the patient complaint. Exam Narrative: General: Well-developed, well nourished, in no apparent distress Head: Normocephalic, atraumatic Eyes: Pupils equally round and reactive to light bilaterally, EOM intact, sclera and conjunctive clear, no discharge, lids normal Ears: TMs intact and congested, ear canals clear, no drainage, grossly hearing normal. Nose: Nares patent, clear nasal discharge, no inflammation, no sinus tenderness. Mouth: Oral pharynx red without lesions or masses, good dentition, MMM. Neck: Supple, trachea midline, no enlargement of anterior or posterior cervical nodes, no thyroid masses or goiter palpable. Cardio: Regular rate and rhythm, s1 and s2 normal, no murmur appreciated. Resp: Clear to auscultation bilaterally, no rhonchi, rales, wheezing or rubs Course Course Emergency Course: Portions of this record may have been created with voice recognition software. Level of Care: Express Care Visit Vital Signs Vital signs: Vital Signs Temperature 40.0 C H 10/16/23 10:25 Pulse Rate 108 H 10/16/23 10:25 Respiratory Rate 16 10/16/23 10:25 Blood Pressure 127/75 10/16/23 10:25 Pulse Oximetry 99 10/16/23 10:25 Oxygen Delivery Room Air 10/16/23 10:25 Temperature 40.0 C H 10/16/23 10:25 Pulse Rate 108 H 10/16/23 10:25 Respiratory Rate 16 10/16/23 10:25 Blood Pressure 127/75 10/16/23 10:25 Pulse Oximetry 99 10/16/23 10:25 Oxygen Delivery Room Air 10/16/23 10:25 Vital signs reviewed MDM - URI/Sore Throat MDM Narrative Medical decision making narrative: At the time of visit patient is resting comfortably on the exam table. Patient appears to be nontoxic. Labs: COVID, influenza, and strep test were all negative. We will send strep for culture. Plan: I suspect patient has URI p
[2023-10-16 10:25] VITALS: BP 127/75; PULSE 108; RESP 16; TEMP 40; O2SAT 99
== END 2023-10-16 11:16 | disposition home or self-care (01) ==
PROVIDERS: Emergency Provider Nurse Practitioner Family
DX: B34.9 Viral infection, unspecified (principal); J06.9 Acute upper respiratory infection, unspecified; J02.9 Acute pharyngitis, unspecified; Z20.822 Contact with and (suspected) exposure to COVID-19; F17.210 Nicotine dependence, cigarettes, uncomplicated; E66.9 Obesity, unspecified; Z68.37 Body mass index [BMI] 37.0-37.9, adult
CPT/HCPCS: 87081; 87426; 87804; 87880; 99213; G0463

== ENCOUNTER 2025-06-13 10:50 | Emergency (ER) | payer BC, SELFPAY ==
[2025-06-13 10:57] VITALS: BP 152/91; PULSE 78; RESP 18; TEMP 36.6; O2SAT 100
--- NOTE | 2025-06-13 10:58 | ED_ITS ---
HPI - Dental/Oral General Chief complaint: Dental/Oral Stated complaint: Dental Pain Time Seen by Provider: 06/13/25 11:02 Source: patient, RN notes reviewed and old records reviewed Mode of arrival: ambulatory Limitations: no limitations History of Present Illness HPI Narrative: 34-year-old male presents to the [facility] with right-sided dental pain since yesterday morning. Has a history of poor dentition. Related Data Allergies Allergy/AdvReac Type Severity Reaction Status Date / Time No Known Allergies Allergy Verified 06/13/25 11:08 Review of Systems Review of Systems: All systems reviewed & are unremarkable except as noted in HPI and below Constitutional: Constitutional: Reports no additional constitutional complaints ENT: Reports as per HPI and Reports dental pain Cardiovascular: Cardiovascular: Reports no additional cardiovascular complaints, Denies chest pain and Denies dyspnea Respiratory: Respiratory: Reports no additional respiratory complaints, Denies chest congestion, Denies cough and Denies dyspnea Musculoskeletal: Musculoskeletal: Reports no additional musculoskeletal complaints Integumentary/Breasts: Skin/Breast: Reports system reviewed and no additional complaints, except as docu PMFSH Past Medical History Medical History Obesity (BMI 30-39.9) Tobacco dependence Surgical History Surgical History No pertinent past surgical history Social History Social History Smoking packs per day: 1.5 Smoking cigarettes per day: 30.0 Years smoked: 10 Smoking pack-years: 15.00 Smoking status: Current every day smoker Tobacco type: cigarettes Alcohol intake: never Substance use: never Lack of Transportation: No Lack of Food: Never True Current Housing: I Have Housing Concerned About Future Housing: Decline to Answer Difficulty Paying Gas/Electric Bills: Decline to Answer Difficulty Paying for Meds: Decline to Answer Currently Unemployed: Decline to Answer Education: Decline to Answer Difficulty w/ Childcare or Family Care: Decline to Answer Spiritual care concerns: No Comments At the time of my signature, I reviewed and agree with the nursing past medical, surgical, social, and family history. There is no relevant family history pertinent to the patient complaint. Exam Const: General: cooperative, healthy appearing, comfortable, no acute distress, well developed, alert and well nourished Nutritional Appearance: well nourished Orientation/consciousness: patient oriented x3 Limitations: no limitations HENMT: Head: normal to inspection Ears: hearing grossly normal bilaterally, external ears normal, TM's normal bilaterally, EAC's normal, mastoids normal and no periauricular adenopathy Mouth: Yes Normal oral and palatal mucosa present, Yes lip normal, Yes tongue normal and Yes moist mucous membranes Teeth and gingiva: abnormal tooth and associated gingiva (Right upper) upper right tender, with associated gingival edema, enamel fractured and dentin fractured Throat: posterior oropharynx normal, uvula midline and no uvular edema Eyes: General: appearance normal, both eyes and all related structures Alignment and Position: alignment normal Neck: Neck: normal visual inspection, full ROM, no lymphadenopathy and no meningeal signs Chest: Chest palpation & inspection: normal inspection of the chest Resp: Effort & Inspection: normal respiratory effort and able to speak in complete sentences Auscultation: clear to auscultation bilaterally, no crackles, no rales, no rhonchi and no wheezes Cardio: Rate: regular rate Skin: General skin exam: normal color and no rashes or lesions noted Neuro: General: patient oriented x3, gait normal, moves all extremities and no meningeal signs Cognition (Neuro): normal cognition Speech: normal speech Gait exam (Neuro): Normal gait present Extrem: General: normal to inspection, full ROM, capillary refill normal and normal gait Psych: Appearance: grossly normal and well kempt Mental Status: mental status grossly normal Speech and movement: Normal speech and movement present and Clear speech present Affect: normal affect Attitude: cooperative Course Course Level of Care: Express Care Visit Vital Signs Vital signs: Vital Signs Temperature 97.8 F 06/13/25 10:57 Pulse Rate 78 06/13/25 10:57 Respiratory Rate 18 06/13/25 10:57 Blood Pressure 152/91 H 06/13/25 10:57 Pulse Oximetry 100 06/13/25 10:57 Oxygen Delivery Room Air 06/13/25 10:57 Temperature 97.8 F 06/13/25 10:57 Pulse Rate 78 06/13/25 10:57 Respiratory Rate 18 06/13/25 10:57 Blood Pressure 152/91 H 06/13/25 10:57 Pulse Oximetry 100 06/13/25 10:57 Oxygen Delivery Room Air 06/13/25 10:57 Reviewed MDM - Dental/Oral MDM Narrative Medical decision making narrative: Patient sitting in exam room. Patient is nontoxic, vitals stable except blood pressure elevated. Patient presents with right-sided dental pain. Erythema, mild edema noted to the right upper gingiva, associated decay to teeth. Patient is appropriate for outpatient treatment with close follow-up. Dental list given Discharge instructions reviewed with patient, as well as provided in writing per nursing staff. The instructions also include specific and strict return/GO TO THE ER as well as f/u information. All questions have been answered, and the patient deny any further questions with discharge and discharge plan. Some parts of this dictation were generated by voice recognition software and may contain typographical and/or grammatical inaccuracies. Differential Diagnosis Differential diagnosis: Likely gingival abscess, dental caries, toothache, dental abscess, fracture of tooth and aphthous ulcer Critical Care Time Critical Care Time Critical Care Time: No Discharge Plan Discharge Clinical Impression: Dental infection, Dental decay Patient Disposition: Home Condition: Stable Instructions: Antibiotic Form, Dental Abscess (ED) Additional Instructions: Finish the entire course of antibiotics -teeth in use mouthwash twice daily After every time you eat be sure to use salt water rinses. Apply ice to face to help with pain. Take Tylenol alternating with Motrin as needed for pain. You can alternate every 4 hours You need to follow-up with a dental provider as soon as possible for further evaluation and treatment. A list of dental providers has been given to you Follow up with a Primary Care Provider (PCP) about medical needs. A PCP can help keep you healthy by preventive medicine and screening. Go to the ER for New or worsening symptoms. Patient Language: Ukrainian Prescriptions: New penicillin V potassium 500 mg tablet 500 mg PO Q12H 10 Days Qty: 20 0RF Follow-up/Referrals: PHYSICIAN,SIGNAL FITTER [Primary Care Provider, Internal Medicine] Stand Alone Forms: Work/School Release IP Time of Disposition: 11:13
== END 2025-06-13 11:21 | disposition home or self-care (01) ==
PROVIDERS: Emergency Provider Nurse Practitioner
DX: K04.7 Periapical abscess without sinus (principal); K02.9 Dental caries, unspecified; F17.210 Nicotine dependence, cigarettes, uncomplicated; E66.9 Obesity, unspecified; Z68.35 Body mass index [BMI] 35.0-35.9, adult
CPT/HCPCS: 99213; G0463